=== PATIENT | male | born 1970 | race Caucasian/White ===

== ENCOUNTER 2018-09-05 08:15 | Emergency (ER) | payer BC ==
[~2018-09-05] VITALS: Ht 167.6 cm; Wt 65.8 kg
[2018-09-05 09:49] VITALS: BP 137/84
== END 2018-09-05 09:49 | disposition home or self-care (01) ==
LOC: M.ERS 08:15
DX: S61.412A Laceration without foreign body of left hand, initial encounter (principal); W26.0XXA Contact with knife, initial encounter; Y93.89 Activity, other specified; Y92.89 Other specified places as the place of occurrence of the external cause; Y99.8 Other external cause status

== ENCOUNTER 2018-12-29 14:13 | Inpatient (IN) | payer BC ==
[~2018-12-29] VITALS: Ht 167.6 cm; Wt 71.3 kg
--- NOTE | ~2018-12-29 | CON ---
[address] [address] CONSULTATION Name: CHEKOJOSEMATIAS ANTIONE Room: [address] IN M.R.#: [id number] Admission: 12/29/18 Attend Phys: Melissa Henry MD Discharge: Date of : 68 Report #: [id number] THIS REPORT FOR: //name// CC: AUDIE physician/PCP Melissa Henry DATE OF SERVICE: 12/30/2018 REASON FOR CONSULT: Severe abdominal pain, nausea and vomiting. HISTORY OF PRESENT ILLNESS: This is a 48-year-old male who presents with severe epigastric pain associated with nausea and vomiting. He has long history of alcohol abuse and admits to drinking at least 6 pack of beer per day. Upon admission, the patient's lipase was mildly elevated in the range of 400. CT of abdomen and pelvis did not show any evidence of peripancreatic stranding or inflammation, but there was evidence of abnormality in liver contour suggestive of cirrhosis and abdominal ascites. PAST MEDICAL HISTORY: Significant for history of alcohol use. He denies ever having any history of pancreatitis in the past. ALLERGIES: No known drug allergy. MEDICATIONS: Please refer to MAR. SOCIAL HISTORY: The patient admits to drinking alcohol, but denies drug use. He lives at home. FAMILY HISTORY: Noncontributory. PHYSICAL EXAMINATION: VITAL SIGNS: Reveals blood pressure of 101/66, pulse 84, temperature 98.2, pulse is 84. LUNGS: Clear. CARDIOVASCULAR: Regular. ABDOMEN: Soft, tender to palpation in the epigastric region. There is positive fluid shift suggestive of ascites. NEUROLOGIC: The patient is alert and oriented x 3. LABORATORY DATA: Reveal sodium of 139, potassium 4.3, BUN is 7, creatinine 1.0, glucose 98, AST is 282, ALT is 316, alk phos 193 with lipase of 454, total bilirubin is 4.1. Albumin is 2.8. INR is 1.1. WBC is 5.0 with hemoglobin of 16.8, platelet of 95. Viral hepatitis serology was obtained and is pending. IMAGING: [id number] CONSULTATION Name: MATIAS DANG Room: [address] IN [facility]#: [id number] Admission: 12/29/18 Attend Phys: Melissa Henry MD Discharge: Date of : 68 Report #: [id number] ASSESSMENT AND PLAN: We will consider obtaining abdominal ultrasound to further investigate the abnormal liver enzymes and assure that patient does not have any choledocholithiasis. If this is negative, I will consider upper endoscopy to further evaluate the patient's nausea and vomiting. The patient is agreeable with plan. By: [id number] Browning MD /nt
[2018-12-29 14:22] VITALS: BP 145/99
[2018-12-29 14:43] LABS: ABSOLUTE BASOPHILS 0.1 thou/uL (0.0-0.2); ABSOLUTE EOSINOPHILS 0.1 thou/uL (0.0-0.7); ABSOLUTE LYMPHOCYTES 1.4 thou/uL (0.8-5.3); ABSOLUTE MONOCYTES 0.6 thou/uL (0.0-1.2); ABSOLUTE NEUTROPHILS 2.7 thou/uL (1.6-8.1); BASOPHILS 2.5 %; EOSINOPHILS 1.6 %; HEMATOCRIT 48.3 % (42.0-52.0); HEMOGLOBIN 16.8 gm/dL (14.0-18.0); LYMPHOCYTES 28.8 %; MCH 37.3 pg (26.0-34.0); MCHC 34.7 g/dL (28.0-37.0); MCV 107.4 fL (80.0-100.0); MPV 9.4 fl. (7.2-11.1); NUCLEATED RBCS 0 /100WBC; PLATELET COUNT* 95 thou/uL (150-400); POLYS 54.1 %; RBC 4.49 mil/uL (4.50-6.00); RDW-CV 14.5 % (10.5-14.5)
[2018-12-29 15:32] LABS: ALBUMIN 2.8 g/dL (3.4-5.0); CALCIUM 8.4 mg/dL (8.5-10.1); POTASSIUM 4.3 mmol/L (3.5-5.1); TOTAL BILIRUBIN 4.1 mg/dL (<0.1-1.0); TOTAL PROTEIN 6.1 g/dL (6.4-8.2)
[2018-12-29 16:28] LABS: URINE BILIRUBIN NEGATIVE (Negative); URINE BLOOD NEGATIVE (Negative); URINE CLARITY CLEAR; URINE COLOR YELLOW; URINE GLUCOSE-RANDOM NEGATIVE (Negative); URINE KETONES NEGATIVE (Negative); URINE LEUKOCYTES-REFLEX NEGATIVE (Negative); URINE NITRITE-REFLEX NEGATIVE (Negative); URINE PROTEIN NEGATIVE (Negative); URINE SPECIFIC GRAVITY <= 1.005 (1.005-1.030)
[2018-12-29 16:49] LABS: MAGNESIUM 1.8 mg/dL (1.8-2.4); PHOSPHORUS* 4.4 mg/dL (2.5-4.9)
[2018-12-29 18:23] LABS: APTT 34.1 Seconds (25.0-31.3); INR 1.4; PROTIME 14.1 Seconds (9.20-11.50)
[2018-12-29 19:15] VITALS: BP 95/56
[2018-12-29 19:56] VITALS: BP 136/88
[2018-12-29 20:15] VITALS: BP 157/98
--- NOTE | 2018-12-29 20:49 | NUR ---
RECEIVED REPORT AND ASSUMED CARE AT 2009. PT TRANSPORTED FROM ED TO ROOM 213. VSS. CARDIAC MONITORING IN PLACE. PT ORIENTATED TO ROOM, CALL LIGHT, FALL POLICY. PT UP AD JOSS IN ROOM, ON RA. PT DENIES COMPLAINTS OF PAIN, ASSESSMENT COMPLETED CHARTED. ADMISSION COMPLETED BY NURSING. BED LOCKED IN LOWEST POSITION, CALL LIGHT WITHIN REACH.
[2018-12-29 23:20] VITALS: BP 126/68
[2018-12-29 23:55] VITALS: BP 142/85
[2018-12-30 03:28] VITALS: BP 95/67
[2018-12-30 05:09] LABS: HEMATOCRIT 42.1 % (42.0-52.0); MCH 36.8 pg (26.0-34.0); MCHC 34.1 g/dL (28.0-37.0); MCV 107.7 fL (80.0-100.0); MPV 8.9 fl. (7.2-11.1); RBC 3.9 mil/uL (4.50-6.00); RDW-CV 14.7 % (10.5-14.5); WBC 3.9 thou/uL (4.0-11.0)
[2018-12-30 05:11] LABS: HEMOGLOBIN 14.4 gm/dL (14.0-18.0)
[2018-12-30 05:19] LABS: ALBUMIN 2.2 g/dL (3.4-5.0); ALKALINE PHOSPHATASE 152 U/L (46-116); ANION GAP 9 mmol/L (7-16); BUN 8 mg/dL (7-18); CALCIUM 7.7 mg/dL (8.5-10.1); CHLORIDE 107 mmol/L (98-107); CHOLESTEROL 119 mg/dL (<200); CO2 23 mmol/L (21-32); CREATININE 0.9 mg/dL (0.6-1.3); GLUCOSE 90 mg/dL (70-99); HDL CHOLESTEROL 47 mg/dL (>40); LDL CHOLESTEROL 60 mg/dL (<100); LIPASE 358 U/L (73-393); MAGNESIUM 2.1 mg/dL (1.8-2.4); POTASSIUM 3.8 mmol/L (3.5-5.1); SGOT 183 U/L (15-37); SGPT 227 U/L (30-65); SODIUM 139 mmol/L (136-145); TC:HDL 2.5 Ratio (Not establshd); TOTAL BILIRUBIN 3.6 mg/dL (<0.1-1.0); TRIGLYCERIDE 62 mg/dL (<150); VLDL 12 mg/dL (<40)
[2018-12-30 05:22] LABS: SERUM ASSESSMENT CLEAR
[2018-12-30 09:45] VITALS: BP 114/77
--- NOTE | 2018-12-30 10:20 | NUR ---
PT TOLERATING LIQUID DIET AND REGULAR DIET. PT DENIES PAIN. CIWA SCORE 0. VSS. NO C/O OF NAUSEA. WILL CONTINUE PLAN OF CARE.
--- NOTE | 2018-12-30 10:46 | NUR ---
cm completed initial assessment to discuss d/c planning. pt admitted d/t swellen in the stomach and is currently on IV. according to the pt's spouse, rajesh, the doctor wants to keep pt for observation "@ least 24 more hours." pt is idependent, works, drives and lives at home w/spouse. pt has no hx w/snf or hh. has 0 dme. the goal is to return home @ time of d/c. cm to remain available to assist as needed.
[2018-12-30 12:17] VITALS: BP 101/66
[2018-12-30 16:02] VITALS: BP 115/71
--- NOTE | 2018-12-30 18:29 | NUR ---
PT TOLERATING REGULAR DIET. PT RECEIVED PAIN MEDICATION 1 TIME THIS SHIFT. AT DINNER PT REPORTED NOT LIKING GRAVY AND BROCCOLI AND HAD AN EPISODE OF EMESIS. PT REPORTED SYMPTOM HAS RESOLVED AND ORDERED A HAMBURGER.
[2018-12-30 20:00] VITALS: BP 114/78
[2018-12-30 22:07] LABS: HEPATITIS B SURFACE AG Negative (Negative)
[2018-12-31] VITALS (7 sets, daily range): BP systolic 111–153; BP diastolic 62–94
[2018-12-31 04:58] LABS: HEMATOCRIT 40.2 % (42.0-52.0); HEMOGLOBIN 13.6 gm/dL (14.0-18.0); MCHC 33.9 g/dL (28.0-37.0); MCV 109.1 fL (80.0-100.0); MPV 9.1 fl. (7.2-11.1); RBC 3.68 mil/uL (4.50-6.00); WBC 4.2 thou/uL (4.0-11.0)
--- NOTE | 2018-12-31 05:18 | NUR ---
ASSUMED PT CARE AT 1930. NURSING ASSESSMENT COMPLETED AT START OF SHIFT. PT VOICED NO CONCERNS. LOADING SHOVEL OILER IN PLACE, TRACING SR/SB THIS SHIFT. HOURLY ROUNDING COMPLETED. PT NPO FOR ABD. ULTRASOUND. CALL LIGHT WITHIN REACH.
[2018-12-31 05:20] LABS: ALBUMIN 2.2 g/dL (3.4-5.0); CALCIUM 7.4 mg/dL (8.5-10.1); CREATININE 0.9 mg/dL (0.6-1.3); MAGNESIUM 2.2 mg/dL (1.8-2.4); TOTAL BILIRUBIN 1.9 mg/dL (<0.1-1.0); TOTAL PROTEIN 4.9 g/dL (6.4-8.2)
--- NOTE | 2018-12-31 11:54 | NUR ---
ASSUMED PT CARE REPORT RECEIVED FROM NURSE PT IS AOX4 SR ON HOUSE WIRER. ON RA. BANANA BAG INFUSING AT 80 PER HOUR. PT IS UNPLEASANT. REFUSED TO SIGN CONSENT FOR EGD AND HAD A PILLOW OVER HIS HEAD WHILE I WAS IN ROOM TALKING TO HIM. AT BEDSIDE. PT SHOWS NO INTEREST IN THE MEDICAL CARE AND EDUCATION PROVIDED. GI CONTACTED. EGD ORDERED. PT WAS KEPT NPO BEFORE EGD. PT WENT FOR EGD AT 11:45 AM. CIWA 0. MONITORING SIGN AND SYMPTOMS OF ALCOHOL WITHDRAWAL. WILL CONTINUE TO MONITOR PT.
[2019-01-01] VITALS: BP 112/72; BP 160/63
[2019-01-01 04:00] VITALS: BP 110/69
--- NOTE | 2019-01-01 08:11 | NUR ---
PT CARE ASSUMED AT 1930. SAT MAINTAINED IN RA. ALERT AND ORIENTED X4. CALL LIGHT WITHIN REACH AND BED IN LOW POSIITON. HOURLY ROUNDING DONE FOR PT SAFETY.
[2019-01-01 08:13] VITALS: BP 110/66
--- NOTE | 2019-01-01 09:46 | NUR ---
RECEIVED REPORT FROM JAMAL AND ASSUMED CARE OF PT @ 8512.PT IS A/O X4,VSS,TRACING SR ON THE MONITOR.IV PATENT AND SALINE LOCKED.PT IS IRRITABLE AND WONT RESPOND TO THE NURSES QUESTIONS.NO C/O PAIN.PT LEFT RESTING IN BED WITH CALL LIGHT WITHIN REACH. AT BEDSIDE.WILL CONTINUE TO MONITOR.
[2019-01-01 10:21] VITALS: BP 110/66
[2019-01-01] MEDS ORDERED: PROTONIX40 M1 PO (10:21)
[2019-01-01] MEDS ORDERED: VITAMIN B-1100 M1 PO (10:26)
[2019-01-01] MEDS ORDERED: FOLIC ACID1 MG PO (10:27)
[2019-01-01] MEDS ORDERED: UNICOMPLEX M TA1 TA1 PO (10:27)
--- NOTE | 2019-01-01 10:44 | NUR ---
GI OK PT FOR DISCHARGE WITH FOLLOW UP FOR POSSIBLE OUTPATIENT PARACENTESIS.DISCHARGE PAPERWORK COMPLETED AND GIVEN TO PT.SCRIPTS GIVEN WITH EDUCATION.IV REMOVED.HEART MONITOR REMOVED AND RETURNED TO THE NURSING STATION.ALL PERSONAL BELONGINGS PACKED AND TAKEN WITH PT.PT WHEELED OUT BY NURSING STAFF TO PERSONAL VEHICLE.
== END 2019-01-01 11:20 | disposition home or self-care (01) | DRG 432 ==
LOC: M.ERS 14:13 → M.2W 16:26 → M.TBA-ER 16:26 → M.2W 19:43
PROVIDERS: Nurse Practitioner; ADMIT Internal Medicine
PROC: 0DB68ZX Excision of Stomach, Via Natural or Artificial Opening Endoscopic, Diagnostic (ICD-10-PCS; principal; 2018-12-31)
DX: K70.31 Alcoholic cirrhosis of liver with ascites (principal); K85.20 Alcohol induced acute pancreatitis without necrosis or infection; F17.210 Nicotine dependence, cigarettes, uncomplicated; F10.10 Alcohol abuse, uncomplicated; Y90.9 Presence of alcohol in blood, level not specified; K21.0 Gastro-esophageal reflux disease with esophagitis; K44.9 Diaphragmatic hernia without obstruction or gangrene; K29.70 Gastritis, unspecified, without bleeding